=== PATIENT | male | born 1985 | race Caucasian/White ===

== ENCOUNTER → 2016-10-10 | Emergency (ER) | payer OTHER ==
[2016-10-10 22:11] VITALS: BP 116/69; PULSE 83; TEMP 97.9; BMI 26.6
== END | disposition left against medical advice (07) ==
LOC: FER 22:06
DX: Z53.21 Procedure and treatment not carried out due to patient leaving prior to being seen by health care provider (principal)
CPT/HCPCS: 99282-25

== ENCOUNTER 2017-08-30 23:56 | Observation (INO) | payer OTHER ==
[2017-08-30 20:49] LABS: HEMATOCRIT 25.8 % (32.4-45.2); HEMOGLOBIN 8.1 GM/dL (10.7-15.3); MCHC 31.4 g/dl (32.0-36.0); MEAN CELL VOLUME 79.7 fl (80-96); MEAN PLT VOLUME 9.7 fl (7.5-11.1); PLATELET COUNT 134 K/MM3 (134-434); RBC 3.24 M/mm3 (3.60-5.2); RDW 16.5 % (11.6-15.6)
[2017-08-30 21:02] LABS: INR 1.02 (0.82-1.09); PROTHROMBIN TIME (PATIENT) 11.5 SEC (9.98-11.88)
[2017-08-30 21:26] LABS: ALBUMIN 2.6 g/dl (3.4-5.0); ANION GAP 9 (8-16); BLOOD UREA NITROGEN 7 mg/dL (7-18); CALCIUM 8.1 mg/dL (8.5-10.1); CHLORIDE 108 mmol/L (98-107); CO2 24 mmol/L (21-32); CREATININE 0.5 mg/dL (0.55-1.02); GLUCOSE,RANDOM 74 mg/dL (74-106); POTASSIUM 3.9 mmol/L (3.5-5.1); SGOT/AST 10 U/L (15-37); SGPT/ALT 12 U/L (12-78); SODIUM 141 mmol/L (136-145)
[2017-08-30 21:27] LABS: ALK PHOS 140 U/L (45-117); BILIRUBIN,TOTAL 0.5 mg/dL (0.2-1.0); TOT PROT 6.1 g/dl (6.4-8.2)
[2017-08-30 21:44] LABS: PLATELET ESTIMATE DECREASED
--- NOTE | 2017-08-30 23:24 | HP ---
Past Medical History - Primary Care Physician PCP:: Chad Hernandez - Admission Chief Complaint: 32yo P1 with at EGA 34w 2d presents with c/o "fainting" at home yesterday x 1 while cooking and today x 1. History of Present Illness: Pt states that she fainted x 2 while cooking and sat herself on the sofa both times. The states that her witnessed both episodes. She reports no trauma, no falling, no loss of urine/stool, no tongue biting. She states feeling palpitations and fatigued. The pt was diagnosed with anemia and has a new appointment with [facility] for evaluation and tx. 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: No: Alzheimer's, CVA, Dementia, Migraine, Multiple Sclerosis, Peripheral Neuropathy, Parkinson's, Seizure, Syncope, TIA, Vertigo, Other Cardiovascular: No: AFIB, Aneurysm, Aortic Insufficiency, Aortic Stenosis, CAD, CHF, Deep Vein Thrombosis, HTN, Hyperlipdemia, ND, Mitral Insufficiency, Mitral Stenosis, Murmur, Pulmonary Hypertension, Other Pulmonary: No: Asthma, Bronchitis, Cancer, COPD, O2 Dependent, Pneumonia, Previously Intubated, Pulmonary Embolus, Pulmonary Fibrosis, Sleep Apnea, Other Gastrointestinal: No: Ascites, Cancer, Constipation, Crohn's Disease, Diverticulitis, Diverticulosis, Esophageal Varices, Gastritis, GERD, GI Bleed, Hemorrhoids, Hiatal Hernia, Inflamatory Bowel Disease, Irritable Bowel Disease, Pancreatitis, Peptic Ulcer Disease, Ulcerative Colitis, Other Hepatobiliary: No: Cirrhosis, Cholelithiasis, Cholecystitis, Choledocholithiasis , Hepatitis A, Hepatitis B, Hepatitis C, Other Renal/: No: Renal Failure, Renal Inusuff, BPH, Cancer, Hematuria, Hemodialysis , Neurogenic Bladder, Renal Calculi, UTI, Other Reproductive: No: Ectopic , Endometriosis, Fibroids, PID, Polycystic Ovary Syndrome, Postmenopausal, Other ...: 2 ...Para: 1 ...Term: 1 ...: 0 ...Spon : 0 ...Induced : 0 ...LMP: 01/02/17 ... Weeks Gestation by Dates: 34.2 ...EDC by Dates: 10/09/17 ...EDC by Sono: 10/09/17 Heme/Onc: Yes: Anemia Infectious Disease: No: AIDS, C-Diff, Herpes Zoster, HIV, MRSA, STD's, Tuberculosis, VREF, Other Psych: No: Addictions, Anxiety, Bipolar, Depression, Panic, Psychosis, Schizophrenia, Other Musculoskeletal: No: Bursitis, Chronic low back pain, Hemiparesis, Hemiplegia, Osteoarthritis, Paraplegia, Other Rheumatology: No: Fibromyalgia, Gout, Lupus, Rheumatoid Arthritis, Sarcoidosis, Vasculitis, Other ENT: No: Allergic Rhinitis, Sinusitis, Other Endocrine: No: Cortes's Disease, Tobin's Disease, Diabetes Insipidus, Diabetes Mellitus, Hyperparathyroidism, Hyperthyroidism, Hypothyroidism, Osteopenia, SIADH, Other Dermatology: No: Basal Cell, Cellulitis, Eczema, Melanoma, Psoriasis, Squamous Cell, Other - Past Surgical History Past Surgical History: Yes: None Hx Myomectomy: No Hx Transabdominal Cerclage: No - Smoking History Smoking history: Unknown if ever smoked Have you smoked in the past 12 months: No Aproximately how many cigarettes per day: 0 - Alcohol/Substance Use Hx Alcohol Use: No - Social History Usual Living Arrangement: Yes: With Spouse, With Child ADL: Independent History of Recent Travel: No Home Medications - Allergies Allergies/Adverse Reactions: Allergies Allergy/AdvReac Type Severity Reaction Status Date / Time No Known Allergies Allergy Verified 08/30/17 22:14 - Home Medications Home Medications: Ambulatory Orders Gummy Vitamins 6 tab.chew PO DAILY 08/30/17 Iron 10 ml PO BID 08/30/17 Family Disease History - Family Disease History Family History: Denies Review of Systems - Review of Systems Constitutional: reports: Weakness, Other (occasional abdominal cramps) Eyes: reports: No Symptoms HENT: reports: No Symptoms Neck: reports: No Symptoms Cardiovascular: reports: Palpitations Respiratory: reports: No Symptoms Gastrointestinal: reports: No Symptoms Genitourinary: reports: No Symptoms Breasts: reports: No Symptoms Reported Musculoskeletal: reports: No Symptoms Integumentary: reports: No Symptoms Neurological: reports: No Symptoms Endocrine: reports: No Symptoms Hematology/Lymphatic: reports: No Symptoms Psychiatric: reports: No Symptoms Pain Intensity: 1 Physical Exam - Maternity Vital Signs: Vital Signs Temperature 98.0 F 08/30/17 22:09 Pulse Rate 115 H 08/30/17 22:09 Respiratory Rate 20 08/30/17 22:09 Blood Pressure 119/66 08/30/17 22:09 O2 Sat by Pulse Oximetry (%) Constitutional: Yes: Well Nourished, No Distress, Calm Eyes: Yes: WNL, Conjunctiva Clear HENT: Yes: WNL, Atraumatic, Normocephalic Neck: Yes: WNL, Supple, Trachea Midline Cardiovascular: Yes: WNL, Regular Rate and Rhythm Lungs: Clear to auscultation, Normal air movement Breast(s): Yes: WNL - Abdominal Exam/OB Fundal Height: 34 Number of Fetuses: Single Presentation: Vertex Contractions: Yes Regularity: Irritability Intensity: Unaware Monitor Mode: External Heart Rate (range): 130 Heart Rate Location: Midline Category: I Accelerations: Uniform Decelerations: None - Vaginal Exam/OB Vaginal Bleediing: No Speculum Exam: No Dilatation (cm): 0 Effacement (%): 0 Amniotic Membrane Status: Intact - Physical Exam Musculoskeletal: Yes: WNL Extremities: Yes: WNL Edema: No Integumentary: Yes: WNL Deep Tendon Reflex Grade: Normal +2 ...Motor Strength: WNL Psychiatric: Yes: WNL, Alert, Oriented - Labs Lab Results: CBC, BMP 08/30/17 20:15 08/30/17 20:15 Hemorrhage Risk Assessment - Risk Factors Medium Risk Factors: Yes: Hematocrit < 30% & other High Risk Factors: Yes: None Risk Score: 1 Risk Level: Medium Risk Assessment/Plan 32 yo P1 with severe anemia and syncope x 2. Pt is not in labor. She was examined twice 3-4 hrs apart w/o cervical change. Fetus with Category I tracing and requires no intervention. At this point I plan to request ER syncope evaluation and possible PRBC transfusion.
[~2017-08-30 23:56] MED LIST: DEXTROSE 5%-LACTATED RINGERS 500 ML IV ONE
--- NOTE | 2017-08-31 00:55 | PDOC ---
History of Present Illness - General History Source: Patient Exam Limitations: No Limitations - History of Present Illness Initial Comments: 08/31/17 06:33 The patient is a 32 year old female who is 34 weeks with no other significant PMH who presents to the emergency department with syncopal episodes with palpitations yesterday and today. The patient reports cooking in the kitchen 2 days ago when she felt dizzy and went to sit in the living room, after which she had a witnessed syncopal episode on the couch. The patients notes it took about 5 minutes to awake the patient. She reports her second episode was yesterday, where she was having breakfast in the kitchen and passed out in front of her . The patient notes she experienced palpitations and some nausea during both episodes. She denies falling on the ground in either episode as she was sitting. The patients denies any seizure activity. Of note, the patient reports an episode of shortness of breath and palpitations approximately 3 months ago and was put on a Holter monitor which was normal. She presents today after being cleared by Dr. Hernandez at L&D for cardiac evaluation at the ED. The patient denies chest pain, shortness of breath, and headache. Denies fevers, chills, nausea, vomit, diarrhea, and constipation. Denies dysuria, frequency, urgency, and hematuria. Allergies: NKA Past surgical history: None reported. Social history: No reported cigarette, alcohol, or drug use. PCP: None reported. <Horacio Davison - Last Filed: 08/31/17 06:34> <Maddie Suero - Last Filed: 08/31/17 20:52> - General Chief Complaint: Syncope/Near Syncope Stated Complaint: fainting Time Seen by Provider: 08/31/17 00:49 Past History <Horacio Davison - Last Filed: 08/31/17 06:34> - Suicide/Smoking/Psychosocial Hx Smoking History: Never smoked Have you smoked in the past 12 months: No Number of Cigarettes Smoked Daily: 0 Hx Alcohol Use: No Drug/Substance Use Hx: No Substance Use Type: None <Maddie Suero - Last Filed: 08/31/17 20:52> - Past Medical History Allergies/Adverse Reactions: Allergies Allergy/AdvReac Type Severity Reaction Status Date / Time No Known Allergies Allergy Verified 08/31/17 00:02 Home Medications: Ambulatory Orders Gummy Vitamins 6 tab.chew PO DAILY 08/30/17 Iron 10 ml PO BID 08/30/17 Review of Systems - Review of Systems Able to Perform ROS?: Yes Comments:: 08/31/17 06:33 GENERAL/CONSTITUTIONAL: No fever or chills. No weakness. HEAD, EYES, EARS, NOSE AND THROAT: No change in vision. No ear pain or discharge. No sore throat. CARDIOVASCULAR: (+) Palpitations. No chest pain or shortness of breath. RESPIRATORY: No cough, wheezing, or hemoptysis. GASTROINTESTINAL: (+) Nausea. No vomiting, diarrhea or constipation. GENITOURINARY: No dysuria, frequency, or change in urination. MUSCULOSKELETAL: No joint or muscle swelling or pain. No neck or back pain. SKIN: No rash NEUROLOGIC: (+) 2 syncopal episodes. (+) Dizziness. No headache, vertigo, loss of consciousness, or change in strength. ENDOCRINE: No increased thirst. No abnormal weight change. HEMATOLOGIC/LYMPHATIC: No anemia, easy bleeding, or history of blood clots. ALLERGIC/IMMUNOLOGIC: No hives or skin allergy. <Horacio Davison - Last Filed: 08/31/17 06:34> *Physical Exam - Vital Signs Last Vital Signs Temp Pulse Resp BP Pulse Ox 98 F 108 H 18 118/66 98 08/31/17 00:05 08/31/17 00:05 08/31/17 00:05 08/31/17 00:05 08/31/17 00:05 - Physical Exam Comments: 08/31/17 06:34 GENERAL: Awake, alert, and fully oriented, in no acute distress HEAD: No signs of trauma EYES: PERRLA, EOMI, sclera anicteric, conjunctiva clear ENT: Auricles normal inspection, hearing grossly normal, nares patent, oropharynx clear without exudates. Moist mucosa NECK: Normal ROM, supple, no lymphadenopathy, JVD, or masses LUNGS: Breath sounds equal, clear to auscultation bilaterally. No wheezes, and no crackles HEART: Regular rate and rhythm, normal S1 and S2, no murmurs, rubs or gallops ABDOMEN: Enlarged belly. Soft, nontender, normoactive bowel sounds. No guarding , no rebound. No masses EXTREMITIES: Normal range of motion, no edema. No clubbing or cyanosis. No cords, erythema, or tenderness NEUROLOGICAL: Cranial nerves II through XII grossly intact. Normal speech, normal gait SKIN: Warm, Dry, normal turgor, no rashes or lesions noted. <DavisonHoracio - Last Filed: 08/31/17 06:34> - Vital Signs Last Vital Signs Temp Pulse Resp BP Pulse Ox 98 F 108 H 18 118/66 98 08/31/17 00:05 08/31/17 00:05 08/31/17 00:05 08/31/17 00:05 08/31/17 00:05 <Maddie Suero - Last Filed: 08/31/17 20:52> Heart Score/ECG Review #1 08/31/17 02:10 Vent rate 94 bpm Normal sinus rhythm <DavisonHoracio - Last Filed: 08/31/17 06:34> ED Treatment Course - LABORATORY CBC & Chemistry Diagram: 08/30/17 20:15 08/30/17 20:15 - ADDITIONAL ORDERS Additional order review: Laboratory Results 08/30/17 08/30/17 08/30/17 20:15 20:15 20:15 PT with INR 11.50 INR 1.02 PTT (Actin FS) 21.0 L Sodium 141 Potassium 3.9 Chloride 108 H Carbon Dioxide 24 Anion Gap 9 BUN 7 Creatinine 0.5 L Creat Clearance w eGFR > 60 Random Glucose 74 Calcium 8.1 L Total Bilirubin 0.5 AST 10 L ALT 12 Alkaline Phosphatase 140 H Creatine Kinase 34 Troponin I < 0.02 Total Protein 6.1 L Albumin 2.6 L Blood Type B POSITIVE Antibody Screen Negative 08/30/17 20:15 RBC 3.24 L MCV 79.7 L MCHC 31.4 L RDW 16.5 H MPV 9.7 Neutrophils % 66.0 Lymphocytes % 5.0 L Monocytes % 15.0 H Eosinophils % 11.0 H Basophils % Hydroelectric Production Manager - Medications Given in the ED: ED Medications Discontinued Medications Generic Name Dose Route Start Last Admin Trade Name Freq PRN Reason Stop Dose Admin Dextrose/Lactated Ringer's 500 mls @ 500 mls/hr 08/30/17 20:00 08/30/17 20:30 D5-Lr - IV 08/30/17 20:59 500 mls/hr ONCE ONE Administration Dextrose/Lactated Ringer's 500 mls @ 250 mls/hr 08/30/17 21:00 08/30/17 21:30 D5-Lr - IV 08/30/17 22:59 250 mls/hr ONCE ONE Administration <Horacio Davison - Last Filed: 08/31/17 06:34> - LABORATORY CBC & Chemistry Diagram: 08/31/17 08:20 08/30/17 20:15 - ADDITIONAL ORDERS Additional order review: Laboratory Results 08/30/17 08/30/17 08/30/17 20:15 20:15 20:15 PT with INR 11.50 INR 1.02 PTT (Actin FS) 21.0 L Sodium 141 Potassium 3.9 Chloride 108 H Carbon Dioxide 24 Anion Gap 9 BUN 7 Creatinine 0.5 L Creat Clearance w eGFR > 60 Random Glucose 74 Calcium 8.1 L Total Bilirubin 0.5 AST 10 L ALT 12 Alkaline Phosphatase 140 H Total Protein 6.1 L Albumin 2.6 L Blood Type B POSITIVE Antibody Screen Negative 08/30/17 20:15 RBC 3.24 L MCV 79.7 L MCHC 31.4 L RDW 16.5 H MPV 9.7 Neutrophils % 66.0 Lymphocytes % 5.0 L Monocytes % 15.0 H Eosinophils % 11.0 H Basophils % Hydroelectric Production Manager - Medications Given in the ED: ED Medications Discontinued Medications Generic Name Dose Route Start Last Admin Trade Name Davidq PRN Reason Stop Dose Admin Dextrose/Lactated Ringer's 500 mls @ 500 mls/hr 08/30/17 20:00 08/30/17 20:30 D5-Lr - IV 08/30/17 20:59 500 mls/hr ONCE ONE Administration Dextrose/Lactated Ringer's 500 mls @ 250 mls/hr 08/30/17 21:00 08/30/17 21:30 D5-Lr - IV 08/30/17 22:59 250 mls/hr ONCE ONE Administration <Maddie Suero - Last Filed: 08/31/17 20:52> Medical Decision Making - Medical Decision Making 08/31/17 01:48 Pt comes with syncope yesterday and today. Both times she was in the kitchen. On she was cooking when she suddenly felt lightheaded. She sat on her couch at home and she "passed out" witnessed by her . On Saturday she was eating breakfast, felt dizzy and sat on the couch and passed out again. I discussed with the patient the fact that this could be indicative of PE/DVT. Pt understands that CTA is too much radiation and that VQ scan may be done while she is admittted. She is 34 weeks and she comes to the ER for eval. Pt went directly to L+D as she has 34 week gestation. There she was cleared by the clerical adviser. He later sent her to the ER for cardiac eval. Pt will have EKG and cardiac enzymes. Blood tests that were done on L+D reveal low Hb/HCT. 08/31/17 05:15 Pt states that she has had SOB x 3 months, and that her DIRECT CHILL CASTER sent her to cardiology @ [facility]. She has had a holter monitor in the past 3 months and it has been normal. Pt says that she is comfortable at this time. No palpitations. 08/31/17 20:50 Pt was admitted to the hospitalist and the day team is going to admit her to a tele bed, as we are having difficulty transitioning her chart from OB/L+D to ER to admission; Pt is admitted however. <Maddie Suero - Last Filed: 08/31/17 20:52> *DC/Admit/Observation/Transfer - Attestations Scribe Attestion: 08/31/17 04:03 Documentation prepared by Horacio Davison, acting as medical administrative technician for Maddie Suero MD. <Horacio Davison - Last Filed: 08/31/17 06:34> - Discharge Dispostion Admit: Yes <Maddie Suero - Last Filed: 08/31/17 20:52> Diagnosis at time of Disposition: Syncope Qualifiers: Syncope type: unspecified Qualified Code(s): R55 - Syncope and collapse - Discharge Dispostion Condition at time of disposition: Guarded
--- NOTE | 2017-08-31 05:31 | PN ---
Teaching Attending Note Name of Resident: Mavis Sky ATTENDING PHYSICIAN STATEMENT I saw and evaluated the patient. Chart, data, and imaging reviewed. I reviewed the resident's note and discussed the case with the resident. I agree with the resident's findings and plan as documented. SUBJECTIVE: 32yo woman at 34 weeks gestation underwent 2 syncope episodes- one 08/29 and one 08/30. The first episode - patient was cooking and felt palpitations, lightheaded and walked over to couch and lost consciousness of several seconds. The second episode-pt lost consciousness on her couch and lasted for a few seconds. There was no trauma to head. There was no tongue biting. Patient follows regularly with OBGYN for routine care. She denied using any illicit drugs or etoh. OBJECTIVE: Last Vital Signs Temp Pulse Resp BP Pulse Ox 98 F 108 H 18 118/66 98 08/31/17 00:05 08/31/17 00:05 08/31/17 00:05 08/31/17 00:05 08/31/17 00:05 general- pleasant, aaox3, nad heent- atraumatic, no sinus tenderness, no tongue bites neck -supple cv-s1+s+rrr, no murmurs appreciated chest - cta b/l abdomen-gravid uterus skin - no rashes appreciated Abnormal Lab Results 08/30/17 08/30/17 08/30/17 20:15 20:15 20:15 WBC 16.0 H RBC 3.24 L Hgb 8.1 L Hct 25.8 L MCV 79.7 L MCH 25.0 L MCHC 31.4 L RDW 16.5 H Lymphocytes % 5.0 L Monocytes % 15.0 H Monocytes % (Manual) 11 H Eosinophils % 11.0 H Metamyelocytes 3 H PTT (Actin FS) 21.0 L Chloride 108 H Creatinine 0.5 L Calcium 8.1 L AST 10 L Alkaline Phosphatase 140 H Total Protein 6.1 L Albumin 2.6 L EKG - normal sinus rhythm ASSESSMENT AND PLAN: #Syncope episodes x2 in a woman at 34 wks gestation with normal EKG and evidence of seizure activity. Most likely 2/2 orthostatic or vasovagal mechanism. -admit to observation telemery -check for orthostatic hypotension -transthoracic echo to r/o aortic stenosis -carotid duplex ultrasound b/l -IV fluid hydration -bed rest # at 34 weeks gestation -OBGYN consult for management -avoid teratogenic drugs -Anemia- may be partially due to dilution -iron studies, ferritin, b12 -repeat CBC- if persistently severe anemia, transfuse PRBC #DVT ppx- heparin sc
--- NOTE | 2017-08-31 05:50 | HP ---
CHIEF COMPLAINT: syncope PCP: HISTORY OF PRESENT ILLNESS: The pt is a 42 year old female 34 weeks with a PMH of anemia, GERD who presented to the hospital complaining of two episodes of losing consciousness. First one 2 days ago while cooking and second one yesterday 08/30/17 after eating breakfast. In both situations she started feeling palpitations and dizziness before and after the episodes. She was able to reach her couch, sit down and fell "to the side". It was witnessed by her . The pt denies biting her tongue, urination, seizure, hitting her head. She had palpitations before her . Cardiac workup was done by her sectionizer (doesn't remember the name) in [facility] that was normal. Around the same time two days ago , she started having abdominal cramping. The pt says that her is uncomplicated. She takes oral iron and multivitamins. When I saw the pt she denied palpitations, chest pain, dizziness, contractions, cramping, vaginal bleeding. She denies fever, chills, nausea, vomiting. 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 Family History: father: heart disease, stents mother: osteoarthritis, DM Allergies No Known Allergies Allergy (Verified 08/31/17 00:02) HOME MEDICATIONS: Home Medications Medication Instructions Recorded Gummy Vitamins 6 tab.chew PO DAILY 08/30/17 Iron 10 ml PO BID 08/30/17 REVIEW OF SYSTEMS CONSTITUTIONAL: Absent: fever, chills, diaphoresis, generalized weakness, malaise, loss of appetite, weight change HEENT: Absent: rhinorrhea, nasal congestion, throat pain, throat swelling, difficulty swallowing, mouth swelling, CARDIOVASCULAR: syncope, palpitations Absent: chest pain, irregular heart rate, lightheadedness, peripheral edema RESPIRATORY: Absent: cough, shortness of breath, dyspnea with exertion, orthopnea, wheezing, GASTROINTESTINAL: Absent: abdominal pain, abdominal distension, nausea, vomiting, diarrhea, constipation, GENITOURINARY: Absent: dysuria, frequency, urgency, hesitancy, hematuria, flank pain, genital pain MUSCULOSKELETAL: Absent: myalgia, arthralgia, joint swelling, back pain, neck pain SKIN: Absent: rash, itching, pallor ENDOCRINE: Absent: unexplained weight gain, unexplained weight loss, heat intolerance, cold intolerance NEUROLOGIC: Absent: headache, focal weakness or paresthesias, dizziness, unsteady gait, seizure, PSYCHIATRIC: Absent: anxiety, depression, PHYSICAL EXAMINATION Vital Signs - 24 hr 08/30/17 08/31/17 22:09 00:05 Temperature 98.0 F 98 F Pulse Rate 108 H Pulse Rate [ 115 H Pulse Oximetry] Respiratory 20 18 Rate Blood Pressure 118/66 Blood Pressure 119/66 [Right Upper Arm] O2 Sat by Pulse 98 Oximetry (%) GENERAL: Awake, alert, and fully oriented, in no acute distress. HEAD: Normal with no signs of trauma. EYES: Pupils equal, round and reactive to light, extraocular movements intact, sclera anicteric, conjunctiva clear. No lid lag. EARS, NOSE, THROAT: Ears normal, nares patent, oropharynx clear without exudates. Moist mucous membranes. NECK: Normal range of motion, supple without lymphadenopathy, JVD, or masses. LUNGS: Breath sounds equal, clear to auscultation bilaterally. No wheezes, and no crackles. No accessory muscle use. HEART: Regular rate and rhythm, normal S1 and S2 without murmur, rub or gallop. ABDOMEN: Gravid, soft, nontender, distended, normoactive bowel sounds, no guarding, no rebound, no masses. MUSCULOSKELETAL: Normal range of motion at all joints. No bony deformities or tenderness. UPPER EXTREMITIES: 2+ pulses, warm, no clubbing. No peripheral edema. LOWER EXTREMITIES: 2+ pulses, warm. No calf tenderness. No peripheral edema. NEUROLOGICAL: Normal speech, 5/5 motor, sensation intact. Normal gait. PSYCHIATRIC: Cooperative. Good eye contact. Appropriate mood and affect. SKIN: Warm, dry, normal turgor, no rashes or lesions noted. Laboratory Results - last 24 hr 08/30/17 08/30/17 08/30/17 20:15 20:15 20:15 WBC 16.0 H RBC 3.24 L Hgb 8.1 L Hct 25.8 L MCV 79.7 L MCH 25.0 L MCHC 31.4 L RDW 16.5 H Plt Count 134 MPV 9.7 Total Counted 100 Neutrophils % 66.0 Neutrophils % (Manual) 66.0 Band Neutrophils % 5.0 Lymphocytes % 5.0 L Lymphocytes % (Manual) 15.0 Monocytes % 15.0 H Monocytes % (Manual) 11 H Eosinophils % 11.0 H Basophils % Photoengraving Retoucher Metamyelocytes 3 H Hypochromia 1+ Platelet Estimate Decreased Platelet Comment No clumping noted Polychromasia 1+ PT with INR 11.50 INR 1.02 PTT (Actin FS) 21.0 L Sodium 141 Potassium 3.9 Chloride 108 H Carbon Dioxide 24 Anion Gap 9 BUN 7 Creatinine 0.5 L Creat Clearance w eGFR > 60 Random Glucose 74 Calcium 8.1 L Total Bilirubin 0.5 AST 10 L ALT 12 Alkaline Phosphatase 140 H Creatine Kinase 34 Troponin I < 0.02 Total Protein 6.1 L Albumin 2.6 L Blood Type Antibody Screen 08/30/17 20:15 WBC RBC Hgb Hct MCV MCH MCHC RDW Plt Count MPV Total Counted Neutrophils % Neutrophils % (Manual) Band Neutrophils % Lymphocytes % Lymphocytes % (Manual) Monocytes % Monocytes % (Manual) Eosinophils % Basophils % Metamyelocytes Hypochromia Platelet Estimate Platelet Comment Polychromasia PT with INR INR PTT (Actin FS) Sodium Potassium Chloride Carbon Dioxide Anion Gap BUN Creatinine Creat Clearance w eGFR Random Glucose Calcium Total Bilirubin AST ALT Alkaline Phosphatase Creatine Kinase Troponin I Total Protein Albumin Blood Type B POSITIVE Antibody Screen Negative ASSESSMENT/PLAN: The pt is a 42 year old female 34 weeks with a PMH of anemia, GERD who presented to the hospital complaining of two episodes of syncope. She is placed on observation in telemetry. Syncope: -possibly due to dehydration, less likely due to heart disease or seizure -orthostatic vitals, -bed rest -ECHO, carotids ordered -Cardiology consulted -cardiac monitoring -EKG reviewed-nl -TSH ordered : -continue multivitamins -cont Iron -f/u OBGYN recommendations Anemia: -due to -will f/u CBC -cont Iron -will transfuse if Hgb is dropping -iron studies ordered DVT PPX: SCDs -pt is ambulating GI PPX; cont Nexium Disposition: tele obs Problem List - Problem (1) Anemia Code(s): D64.9 - ANEMIA, UNSPECIFIED (2) Code(s): Z34.90 - ENCNTR FOR SUPRVSN OF NORMAL , UNSP, UNSP TRIMESTER (3) Carpal tunnel syndrome Code(s): G56.00 - CARPAL TUNNEL SYNDROME, UNSPECIFIED UPPER LIMB (4) Syncope Code(s): R55 - SYNCOPE AND COLLAPSE Visit type - Emergency Visit Emergency Visit: Yes Care time: The patient presented to the Emergency Department on the above date and was hospitalized for further evaluation of their emergent condition. - New Patient This patient is new to me today: Yes Date on this admission: 08/31/17 - Critical Care Critical Care patient: No
--- NOTE | 2017-08-31 08:07 | PDOC ---
*Physical Exam - Vital Signs Last Vital Signs Temp Pulse Resp BP Pulse Ox 98.0 F 100 H 16 120/71 100 08/31/17 06:35 08/31/17 06:35 08/31/17 06:35 08/31/17 06:35 08/31/17 06:35 ED Treatment Course - LABORATORY CBC & Chemistry Diagram: 08/30/17 20:15 08/30/17 20:15 - ADDITIONAL ORDERS Additional order review: Laboratory Results 08/30/17 08/30/17 08/30/17 20:15 20:15 20:15 PT with INR 11.50 INR 1.02 PTT (Actin FS) 21.0 L Sodium 141 Potassium 3.9 Chloride 108 H Carbon Dioxide 24 Anion Gap 9 BUN 7 Creatinine 0.5 L Creat Clearance w eGFR > 60 Random Glucose 74 Calcium 8.1 L Total Bilirubin 0.5 AST 10 L ALT 12 Alkaline Phosphatase 140 H Creatine Kinase 34 Troponin I < 0.02 Total Protein 6.1 L Albumin 2.6 L Blood Type B POSITIVE Antibody Screen Negative 08/30/17 20:15 RBC 3.24 L MCV 79.7 L MCHC 31.4 L RDW 16.5 H MPV 9.7 Neutrophils % 66.0 Lymphocytes % 5.0 L Monocytes % 15.0 H Eosinophils % 11.0 H 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 Muñoz had informed me that with patients that are in 3rd trimester, the patient should be admitted under environmental science instructor. They will remain on as consultants. Case discussed with Dr. Hernandez. He accepts patient to his service. *DC/Admit/Observation/Transfer Diagnosis at time of Disposition: Syncope Qualifiers: Syncope type: unspecified Qualified Code(s): R55 - Syncope and collapse - Discharge Dispostion Admit: Yes - Referrals - Patient Instructions - Post Discharge Activity
[2017-08-31 09:05] LABS: HEMATOCRIT 24.7 % (32.4-45.2); HEMOGLOBIN 7.7 GM/dL (10.7-15.3); MCH 24.9 pg (25.7-33.7); MCHC 31.2 g/dl (32.0-36.0); MEAN CELL VOLUME 79.6 fl (80-96); MEAN PLT VOLUME 9.3 fl (7.5-11.1); PLATELET COUNT 117 K/MM3 (134-434); RDW 16.7 % (11.6-15.6); WHITE BLOOD COUNT 16.7 K/mm3 (4.0-10.0)
--- NOTE | 2017-08-31 09:47 | CON.CARD ---
Consult Consult Specialty:: Cardiology Referred by:: Hospitalist Reason for Consultation:: Syncope and palpitations - History of Present Illness Chief Complaint: Syncope History of Present Illness: 32 year old woman with no significant pmh, currently at 34 weeks gestation of her 2nd , admitted with 2 episodes of syncope and episodes of palpitations. Pt seen and examined in the ER in [facility]. Pt states that she has been feeling palpitations on and off for several weeks. She was evaluated by a commissioned security officer at [facility] and had a holter monitor that she states was normal. She now comes in for 2 episodes of syncope. The first episode on 08/29 occurred while standing in the kitchen, she felt palpitations, lightheadedness, and then sat down and lost consciousness. She states her witnessed it and she states she was unconscious for about a minute, when she woke up she still felt lightheaded, she ate and drank and layed down then felt better. On 08/30 a second episode of syncope occurred while sitting in a chair with similar preceding symptoms and followed by lightheadedness after waking up. She denies any chest pain. She has had mild dyspnea throughout her . No pnd, orthopnea, or LE edema. - History Source History Provided By: Patient, Medical Record Limitations to Obtaining History: No Limitations - Past Medical History ...: Yes - Past Surgical History Past Surgical History: Yes: None - Alcohol/Substance Use Hx Alcohol Use: No - Smoking History Smoking history: Never smoked Have you smoked in the past 12 months: No Aproximately how many cigarettes per day: 0 - Social History ADL: Independent History of Recent Travel: No Home Medications - Allergies Allergies/Adverse Reactions: Allergies Allergy/AdvReac Type Severity Reaction Status Date / Time No Known Allergies Allergy Verified 08/31/17 00:02 - Home Medications Home Medications: Ambulatory Orders Duy Vitamins 6 tab.chew PO DAILY 08/30/17 Iron 10 ml PO BID 08/30/17 Family Disease History - Family Disease History Family History: Denies Review of Systems - Review of Systems Constitutional: denies: No Symptoms, Chills, Diaphoresis, Fever, Lethargy, Loss of Appetite, Malaise, Night Sweats, Unintentional Wgt. Loss, Weakness, Other Eyes: denies: No Symptoms, Blind Spots, Blurred Vision, Double Vision, Eye Pain , Floaters, Photophobia, Recent Change in Vision, Other HENT: denies: No Symptoms, Difficult Swallowing, Ear Discharge, Ear Pain, Epistaxis, Gingival Bleeding, Hearing Loss, Mouth Swelling, Nasal Congestion, Ocular Prosthesis, Throat Pain, Toothache, Ringing in Ears, Other Neck: denies: No Symptoms, Decreased ROM, Lumps, Pain on Movement, Stiffness, Swollen Glands, Tenderness, Other Cardiovascular: reports: Palpitations, Shortness of Breath. denies: No Symptoms , Chest Pain, Edema, Other Respiratory: reports: SOB, SOB on Exertion. denies: No Symptoms, Cough, Exercise Intolerance, Hemoptysis, Orthopnea, PND, Snoring, Wheezing, Other Gastrointestinal: denies: No Symptoms, Abdominal Pain, Bloating, Constipation, Diarrhea, Dysphagia, Indigestion, Melena, Nausea, Rectal Bleeding, Vomiting, Vomiting Blood, Other Genitourinary: denies: No Symptoms, Burning, Discharge, Dysuria, Flank Pain, Frequency, Hematuria, Incontinence, Lesions, Menses, Pain, Testicular Mass, Testicular Pain, Testicular Swelling, Urgency, Vaginal Bleeding, Other Breasts: denies: No Symptoms Reported, See HPI, Breast Implants, Discharge from Nipple, Lumps, Pain, Skin Changes, Other Musculoskeletal: denies: No Symptoms, Back Pain, Crepitus, Decreased ROM, Extremity Pain, Joint Pain, Joint Swelling, Muscle Pain, Muscle Cramps, Muscle Weakness, Other Integumentary: denies: No Symptoms, Blister, Bruising, Change in Color, Eczema, Erythema, Incision, Lesions, Lump, Pallor, Pruritis, Rash, Wound, Other Neurological: reports: Dizziness, Syncope. denies: No Symptoms, Change in LOC, Change in Speech, Confusion, Headache, Incoordination, Numbness, Parasthesia, Pre-Existing Deficit, Seizure, Tremors, Unsteady Gait, Weakness, Other Endocrine: denies: No Symptoms, Excessive Sweating, Flushing, Increased Hunger, Increased Thirst, Intolerance to Cold, Intolerance to Heat, Unexplained Weight Gain, Unexplained Weight Loss, Other Hematology/Lymphatic: denies: No Symptoms, Easily Bruised, Excessive Bleeding, Swollen Glands, Other Psychiatric: denies: No Symptoms, Altered Sleep Pattern, Anxiety, Depression, Hallucinations, Panic, Paranoia, Suicidal, Other Vital Signs: Vital Signs Temperature 98.0 F 08/31/17 06:35 Pulse Rate 106 H 08/31/17 09:22 Respiratory Rate 16 08/31/17 09:22 Blood Pressure 110/68 08/31/17 09:22 O2 Sat by Pulse Oximetry (%) 100 08/31/17 09:22 Constitutional: Yes: Well Nourished, No Distress, Calm Eyes: Yes: WNL, Conjunctiva Clear, EOM Intact, PERRL HENT: Yes: WNL, Atraumatic, Normocephalic Neck: Yes: WNL, Supple, Trachea Midline Respiratory: Yes: WNL, Regular, CTA Bilaterally. No: Rales, Rhonchi, Wheezes Gastrointestinal: Yes: Normal Bowel Sounds, Other (gravid uterus) Cardiovascular: Yes: WNL, Regular Rate and Rhythm. No: Bradycardia, Tachycardia , Pulse Irregular, Gallop, Rub, Varicosities JVD: No Carotid Bruit: No PMI: Non-Displaced Heart Sounds: Yes: S1, S2. No: Split S2, S3, S4, Clicks, Gallop, Rub, Bruit Murmur: No: Systolic Murmur, Diastolic Murmur Musculoskeletal: Yes: WNL Extremities: Yes: WNL Edema: No Peripheral Pulses WNL: Yes Peripheral Pulses: 2+ Left Doralis Pedis, 2+ Right Dorsalis Pedis Integumentary: Yes: WNL Neurological: Yes: WNL, Alert, Oriented, Cran Nerves II-XII Intact Psychiatric: Yes: Alert, Oriented - Other Data Labs, Other Data: CBC, BMP 08/31/17 08:20 08/30/17 20:15 INR, PTT INR 1.02 (0.82-1.09) 08/30/17 20:15 Troponin, BNP 08/30/17 20:15 Troponin I < 0.02 Troponin, BNP 08/30/17 20:15 Troponin I < 0.02 EKG-NSR 99bpm, poor R progression, nonspecific T inversion Imaging - Results Chest X-ray: Report Reviewed, Image Reviewed EKG: Report Reviewed, Image Reviewed Other: Report Reviewed, Image Reviewed (tele-nsr, no arrhtyhmias recorded thus far) Assessment/Plan 32 year old woman with no significant pmh, currently at 34 weeks gestation of her 2nd , admitted with 2 episodes of syncope and episodes of palpitations. Pt seen and examined in the ER [place]. Pt states that she has been feeling palpitations on and off for several weeks. She was evaluated by a commissioned security officer at [facility] and had a holter monitor that she states was normal. She now comes in for 2 episodes of syncope. The first episode on 08/29 occurred while standing in the kitchen, she felt palpitations, lightheadedness, and then sat down and lost consciousness. She states her witnessed it and she states she was unconscious for about a minute, when she woke up she still felt lightheaded, she ate and drank and layed down then felt better. On 08/30 a second episode of syncope occurred while sitting in a chair with similar preceding symptoms and followed by lightheadedness after waking up. She denies any chest pain. She has had mild dyspnea throughout her . No pnd, orthopnea, or LE edema. Syncope-uncertain etiology -she does report palpitations on and off recently and correlating with the event -recent Holter monitor with a commissioned security officer at [facility] reported as normal by patient -no events thus far on telemetry -pt reports mild sob with her , none currently, no chest pain, SaO2 normal, unlikely pulmonary embolism -cont to monitor telemetry for arrhythmias -check orthostatic BP -pt reports h/o anemia, confirm baseline and prior work up -f/up TFTs -maintain adequate hydration -if remains inpatient until saturday check echo at that time otherwise as outpatient
[2017-08-31] MEDS ORDERED: DEXTROSE 5%-LACTATED RINGERS 1,000 ML IV SCH (10:45)
--- NOTE | 2017-08-31 12:12 | EKG ---
Test Reason : Blood Pressure : / mmHG Vent. Rate : 094 BPM Atrial Rate : 094 BPM P-R Int : 168 ms QRS Dur : 088 ms QT Int : 350 ms P-R-T Axes : 049 066 016 degrees QTc Int : 437 ms NORMAL SINUS RHYTHM CANNOT RULE OUT ANTERIOR INFARCT , AGE UNDETERMINED ABNORMAL ECG NO PREVIOUS ECGS AVAILABLE Confirmed by VINCE SHI MD ([id number]) on 08/31/2017 12:12:12 PM Referred By: Confirmed By:VINCE HSI MD
--- NOTE | 2017-08-31 22:12 | HOSP ---
Subjective - Review of Symptoms Events since last encounter: Patient is refusing to have blood transfusions. Continues to have tachycardia no shortness of breath, feels comfortable but had 2 episodes of syncope at home. monitoring per shift as per [facility]. Vital Signs Temperature 98.4 F 08/31/17 21:12 Pulse Rate 102 H 08/31/17 21:12 Respiratory Rate 20 08/31/17 21:12 Blood Pressure 108/65 08/31/17 21:12 O2 Sat by Pulse Oximetry (%) 96 08/31/17 21:00 PE: comfortably lying in bed HEENT : MMM, no exudate or erythema CHEST: CTA BL abdomen: 34week lady Neuro: AAOx3 CBCD WBC 16.7 K/mm3 (4.0-10.0) H 08/31/17 08:20 RBC 3.10 M/mm3 (3.60-5.2) L 08/31/17 08:20 Hgb 7.7 GM/dL (10.7-15.3) L 08/31/17 08:20 Hct 24.7 % (32.4-45.2) L 08/31/17 08:20 MCV 79.6 fl (80-96) L 08/31/17 08:20 MCHC 31.2 g/dl (32.0-36.0) L 08/31/17 08:20 RDW 16.7 % (11.6-15.6) H 08/31/17 08:20 Plt Count 117 K/MM3 (134-434) L 08/31/17 08:20 MPV 9.3 fl (7.5-11.1) 08/31/17 08:20 CMP Sodium 141 mmol/L (136-145) 08/30/17 20:15 Potassium 3.9 mmol/L (3.5-5.1) 08/30/17 20:15 Chloride 108 mmol/L (98-107) H 08/30/17 20:15 Carbon Dioxide 24 mmol/L (21-32) 08/30/17 20:15 Anion Gap 9 (8-16) 08/30/17 20:15 BUN 7 mg/dL (7-18) 08/30/17 20:15 Creatinine 0.5 mg/dL (0.55-1.02) L 08/30/17 20:15 Creat Clearance w eGFR > 60 (>60) 08/30/17 20:15 Random Glucose 74 mg/dL (74-106) 08/30/17 20:15 Calcium 8.1 mg/dL (8.5-10.1) L 08/30/17 20:15 Total Bilirubin 0.5 mg/dL (0.2-1.0) 08/30/17 20:15 AST 10 U/L (15-37) L 08/30/17 20:15 ALT 12 U/L (12-78) 08/30/17 20:15 Alkaline Phosphatase 140 U/L (45-117) H 08/30/17 20:15 Total Protein 6.1 g/dl (6.4-8.2) L 08/30/17 20:15 Albumin 2.6 g/dl (3.4-5.0) L 08/30/17 20:15 CARDIAC ENZYMES Creatine Kinase 39 IU/L (26-192) 08/31/17 08:20 Troponin I < 0.02 ng/ml (0.00-0.05) 08/31/17 08:20 Current Medications Generic Name Dose Route Start Last Admin Trade Name Freq PRN Reason Stop Dose Admin Dextrose/Lactated Ringer's 1,000 mls @ 75 mls/hr 08/31/17 10:45 08/31/17 11: 19 D5-Lr - IV 75 mls/hr ASDIR ANIA Administration Non-Formulary Medication 6 tab.chew 09/01/17 10:00 Gummy Vitamins PO DAILY [facility] Home Medications Medication Instructions Recorded Gummy Vitamins 6 tab.chew PO DAILY 08/30/17 Iron 10 ml PO BID 08/30/17 # Microcytic anemia refusing transfusion at this time, iron supplements 3x per day with food added colace. WILL GET Hematology to see her for further care since she continues to be tachycardic without other symptoms # 34 weeks. Physical Examination Vital Signs: Vital Signs Temperature 98.4 F 08/31/17 21:12 Pulse Rate 102 H 08/31/17 21:12 Respiratory Rate 20 08/31/17 21:12 Blood Pressure 108/65 08/31/17 21:12 O2 Sat by Pulse Oximetry (%) 96 08/31/17 21:00 Labs: CBC, BMP 08/31/17 08:20 08/30/17 20:15
[2017-09-01 06:36] LABS: SERUM IRON SATURATION 3 % (15-55); TOTAL IRON BINDING CAPACITY 606 ug/dL (250-450); UIBC 589 ug/dL (131-425)
--- NOTE | 2017-09-01 07:48 | PN ---
Physical Exam: SUBJECTIVE: Patient seen and examined at bedside. No acute events over night. denies any fever, chills, N/V/D/C. Refused blood transfusion ,asking to try iron supplement.will consult hematology for iron infusion OBJECTIVE: Vital Signs Period Temp Pulse Resp BP Sys/[place] Pulse Ox Last 24 Hr 97.7 F-98.6 F 99-115 16-21 101-129/51-71 96-100 GENERAL: The patient is awake, alert, and fully oriented, in no acute distress. HEAD: Normal with no signs of trauma. EYES: sclera anicteric, conjunctiva pale. ENT: moist mucous membranes. NECK: supple. LUNGS: Breath sounds equal, clear to auscultation bilaterally, no wheezes, no crackles, no accessory muscle use. HEART: Sinus tachy, S1, S2 without murmur, rub or gallop. ABDOMEN: gravid uterus 34 weeks, nontender, distended, normoactive bowel sounds. rebound, no hepatosplenomegaly, no masses. EXTREMITIES: 2+ pulses, warm, well-perfused, no edema. NEUROLOGICAL: No focal deficit,Normal speech, gait not observed. PSYCH: Normal mood, normal affect. SKIN: Warm, dry. Laboratory Results - last 24 hr 08/30/17 08/31/17 08/31/17 20:15 08:20 08:20 WBC 16.7 H RBC 3.10 L Hgb 7.7 L Hct 24.7 L MCV 79.6 L MCH 24.9 L MCHC 31.2 L RDW 16.7 H Plt Count 117 L MPV 9.3 Iron TIBC Iron Saturation Ferritin Creatine Kinase 39 Troponin I < 0.02 TSH 2.88 Crossmatch See Detail 08/31/17 08/31/17 08/31/17 08:20 08:20 11:30 WBC RBC Hgb Hct MCV MCH MCHC RDW Plt Count MPV Iron 17 L TIBC 606 H Iron Saturation 3 L Ferritin 4.452 L Creatine Kinase Cancelled Troponin I Cancelled TSH Crossmatch Active Medications Generic Name Dose Route Start Last Admin Trade Name Freq PRN Reason Stop Dose Admin Dextrose/Lactated Ringer's 1,000 mls @ 75 mls/hr 08/31/17 10:45 08/31/17 11: 19 D5-Lr - IV 75 mls/hr ASDIR ANIA Administration Non-Formulary Medication 6 tab.chew 09/01/17 10:00 Gummy Vitamins PO DAILY ANIA CBC, BMP 08/31/17 08:20 08/30/17 20:15 EKG: NSR with QTc 437 , ASSESSMENT/PLAN: The pt is a 42 year old female 34 weeks with a PMH of anemia, GERD who presented to the hospital complaining of two episodes of syncope. She is placed on observation in telemetry. # Syncope: * possibly due to dehydration, unlikely heart disease or seizure * orthostatic vitals, * bed rest * F/U ECHO, carotid doppler * recent Holter monitor with a back strip machine operator at [facility] reported as normal by patient * Cardiology consulted agree with current management will do echo on Saturday * cardiac monitoring no events * EKG No st,t wave changes * TSH 2.88 WNL # : * continue multivitamins * cont Iron 325 mg Po TID * f/u OBGYN recommendations # Elevated WBC , * wbc 16.7 * UA and urine cx #Sever Anemia Microcytic likely iron deficiency * MCV 79 * delutional due to and low oral intake * Unknown base line * H/H 7.7/24.7 * cont Iron oral * pt refused transfusion * iron studies ordered Iron 17, TIBC 606, Iron sat 3 , transferrin 468, Ferritin 4.4 * consult hem/onco for possible iron infusion # Colace for constipation 100 mg po TID # FEN * F: D5%/RL @ 125 cc/hr * E: WNL , monitor * N: regular diet #DVT PPX: * SCDs,early ambulation , US duplex to R/O DVT #GI PPX; * cont Nexium #Disposition: observation tele Visit type - Emergency Visit Emergency Visit: Yes ED Registration Date: 08/31/17 Care time: The patient presented to the Emergency Department on the above date and was hospitalized for further evaluation of their emergent condition. - New Patient This patient is new to me today: Yes Date on this admission: 09/01/17 - Critical Care Critical Care patient: No
[2017-09-01 08:06] LABS: TRANSFERRIN 468 mg/dL (200-370)
[2017-09-01] MEDS ORDERED: [UNRECOGNIZED DRUG - OTHER] PO SCH (10:00)
[2017-09-01] MEDS ORDERED: DEXTROSE 5%-LACTATED RINGERS 1,000 ML IV SCH (11:31)
[2017-09-01] MEDS ORDERED: FERROUS SO4 325 MG TABLET (FP) PO SCH (12:00)
--- NOTE | 2017-09-01 13:47 | PN ---
Progress Note, Physician History of Present Illness: seen and examined today in [facility]. no overnight events. no recurrent symptoms. wants to go home. was ordered for PRBC transfusion yesterday but refused, wishes to try iron supplements first. - Current Medication List Current Medications: Active Medications Docusate Sodium (Colace -) 100 mg PO TID [facility] Ferrous Sulfate (Feosol -) 325 mg PO TIDCM [facility] Dextrose/Lactated Ringer's (D5-Lr -) 1,000 mls @ 125 mls/hr IV ASDIR [facility] Last Admin: 09/01/17 12:27 Dose: 125 mls/hr Non-Formulary Medication (Gummy Vitamins) 6 tab.chew PO DAILY [facility] - Objective Vital Signs: Vital Signs Temperature 98 F 09/01/17 09:00 Pulse Rate 110 H 09/01/17 11:15 Respiratory Rate 18 09/01/17 09:00 Blood Pressure 107/68 09/01/17 11:15 O2 Sat by Pulse Oximetry (%) 98 09/01/17 09:00 Constitutional: Yes: No Distress, Calm Eyes: Yes: Conjunctiva Clear, EOM Intact HENT: Yes: Atraumatic, Normocephalic Neck: Yes: Supple, Trachea Midline Cardiovascular: Yes: Tachycardia, S1, S2. No: Bradycardia, Pulse Irregular, Bruit, JVD, Gallop, Murmur, Rub, S3, S4, Varicosities Respiratory: Yes: Regular, CTA Bilaterally. No: Rales, Rhonchi, Wheezes Gastrointestinal: Yes: Normal Bowel Sounds, Other (gravid uterus) Musculoskeletal: Yes: WNL Extremities: Yes: WNL Edema: No Peripheral Pulses WNL: Yes Peripheral Pulses: Left Doralis Pedis: 2+, Right Dorsalis Pedis: 2+ Neurological: Yes: Alert, Oriented Psychiatric: Yes: Alert, Oriented Labs: CBC, BMP 08/31/17 08:20 08/30/17 20:15 INR, PTT INR 1.02 (0.82-1.09) 08/30/17 20:15 - ....Imaging Chest X-ray: Report Reviewed, Image Reviewed EKG: Report Reviewed, Image Reviewed Other: Report Reviewed, Image Reviewed (tele-nsr, sinus tach, no arrhythmias) Assessment/Plan 32 year old woman with no significant pmh, currently at 34 weeks gestation of her 2nd , admitted with 2 episodes of syncope and episodes of palpitations. Syncope-uncertain etiology, possibly related to anemia with possible superimposed vasovagal or orthostatic hypotension -significant anemia, unknown baseline, iron deficiency, presume symptoms related to this -pt wishes to hold off on PRBCs transfusion and wants to try iron supplements first, we discussed that iron supplements take time to work -she does report palpitations on and off recently and correlating with the event -recent Holter monitor with a shift supervisor melting at [facility] reported as normal by patient -no events recorded on telemetry but note pt did not have symptoms since being here -check orthostatic BP -TSH wnl -maintain adequate hydration -if remains inpatient until saturday check echo at that time otherwise as outpatient
[2017-09-01] MEDS ORDERED: DOCUSATE SODIUM 100 MG CAPSULE (FP) PO SCH (14:00)
--- NOTE | 2017-09-01 17:52 | DS ---
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..Rectal Exam: Yes: Deferred Renal/: Yes: WNL Uterus: Yes: Normal (Gravid, NT) Breast(s): Yes: WNL Musculoskeletal: Yes: WNL Extremities: Yes: WNL Edema: Yes Edema: LLE: Trace, RLE: Trace Integumentary: Yes: WNL Neurological: Yes: WNL, Alert, Oriented ...Motor Strength: WNL Psychiatric: Yes: WNL, Alert, Oriented Labs: CBC, BMP 08/31/17 08:20 08/30/17 20:15 Discharge Summary Reason For Visit: SYNCOPE Current Active Problems Anemia (Acute) Carpal tunnel syndrome (Acute) (Acute) Syncope (Acute) Procedures: Principal: IV hydration, Telemetry monitoring Hospital Course: Refused blood transfusion No syncopal events No telemetry events Improved Condition: Improved - Instructions Diet, Activity, Other Instructions: Regular diet, off from work Referrals: Chad Hernandez MD [Staff Physician] - Disposition: HOME - Home Medications Comprehensive Discharge Medication List: Ambulatory Orders Demarcusmy Vitamins 6 tab.chew PO DAILY 08/30/17 Iron 10 ml PO BID 08/30/17
--- NOTE | 2017-09-01 18:00 | PN ---
Progress Note (SOAP) - Subjective Chief Complaint: Pt is w/o complaints. She feels better. No syncopal episodes History of Present Illness: Pt was awaiting Heme consult. She does not want to wait any longer. Pt states that she has a Heme consult scheduled for 09/03/2017 and cardiology consult for next week. She has an apt to see me tomorrow - Current Medications Current Medications: Active Medications Docusate Sodium (Colace -) 100 mg PO TID [facility] Last Admin: 09/01/17 13:51 Dose: 100 mg Ferrous Sulfate (Feosol -) 325 mg PO TIDCM [facility] Last Admin: 09/01/17 13:51 Dose: 325 mg Dextrose/Lactated Ringer's (D5-Lr -) 1,000 mls @ 125 mls/hr IV ASDIR [facility] Last Admin: 09/01/17 12:27 Dose: 125 mls/hr Non-Formulary Medication (Gummy Vitamins) 6 tab.chew PO DAILY [facility] - Objective Vital Signs: Vital Signs Temperature 97.5 F L 09/01/17 14:00 Pulse Rate 109 H 09/01/17 14:00 Respiratory Rate 18 09/01/17 09:00 Blood Pressure 110/73 09/01/17 14:00 O2 Sat by Pulse Oximetry (%) 98 09/01/17 09:00 Constitutional: Yes: Well Nourished, No Distress, Calm Eyes: Yes: WNL, Conjunctiva Clear, EOM Intact HENT: Yes: WNL, Atraumatic, Normocephalic Neck: Yes: WNL, Supple, Trachea Midline Cardiovascular: Yes: WNL, Regular Rate and Rhythm Respiratory: Yes: WNL, Regular, CTA Bilaterally Gastrointestinal: Yes: WNL, Normal Bowel Sounds, Soft, Other (Gravid) ...Rectal Exam: Yes: Deferred Genitourinary: Yes: WNL Musculoskeletal: Yes: WNL Extremities: Yes: WNL Peripheral Pulses WNL: Yes Edema: Yes Edema: LLE: Trace, RLE: Trace Integumentary: Yes: WNL Neurological: Yes: WNL, Alert, Oriented ...Motor Strength: Yes: WNL Psychiatric: Yes: WNL, Alert, Oriented Additional Findings/Remarks: NST is reactive, no decels, no ctx's Labs Lab Results: CBC, BMP 08/31/17 08:20 02/16/18 20:15 Problem List - Problems (1) Anemia Assessment/Plan: Pt refused a blood transfusion. She is a vegetarian for many years and we discussed dietary sources of iron and vitamins. I discussed the multiple risks of severe anemia in to mother and fetus, including risks of cardia and renal complications, neuro/brain events, anemia, increased risk of blood transfusion, infection, delayed healing, even . I explained that iron infusion will be planned but does not fix the anemia quickly. Code(s): D64.9 - ANEMIA, UNSPECIFIED Qualifiers: Anemia type: iron deficiency (2) Assessment/Plan: No acute issues. NST is reactive. No labor at this time. Labour precautions were discussed. kick counts advised. Code(s): Z34.90 - ENCNTR FOR SUPRVSN OF NORMAL , UNSP, UNSP TRIMESTER Qualifiers: Weeks of gestation: 34 weeks Qualified Code(s): Z3A.34 - 34 weeks gestation of (3) Syncope Assessment/Plan: Likely due to anemia and dehydration. No other causes found to date. I advised pt to avoid dehydration. I advised to avoid driving. I explained my concerns re : commute to work. Will be off from work for at least 1wk, until stable Code(s): R55 - SYNCOPE AND COLLAPSE Qualifiers: Syncope type: unspecified Qualified Code(s): R55 - Syncope and collapse
[2017-09-01 18:24] VITALS: BP 110/65; PULSE 101; TEMP 98.5
== END 2017-09-01 18:38 | disposition home or self-care (01) ==
LOC: JDEL 08-31 → JERBED 08-31 08:07 → J4W 08-31 15:09
PROVIDERS: ADMIT Obstetrics & Gynecology; ATTEND Obstetrics & Gynecology
DX: O60.00 Preterm labor without delivery, unspecified trimester (principal)
CPT/HCPCS: 36415; 59025; 80053; 82550; 82728; 83540; 83550; 84443; 84466; 84484; 85025; 85027; 85610; 85730; 86850; 86900; 86901; 93005; 93010; 93970-TC; G0378

== ENCOUNTER 2020-06-13 00:28 | Emergency (ER) | payer OTHER ==
[2020-06-13 00:53] VITALS: BMI 36.9
[2020-06-13] MEDS ORDERED: ACETAMINOPHEN 1000 MG/100 ML VIAL (NON FORMULARY) IVPB ONE (02:05)
[2020-06-13] MEDS ORDERED: ACETAMINOPHEN INJECTION 100 ML IVPB ONE (02:41)
[2020-06-13 07:03] VITALS: TEMP 97.3
[2020-06-13] MEDS ORDERED: METOCLOPRAMIDE HCL INJECTION 10 MG/2 ML VIAL IVPB ONE (11:17)
[2020-06-13] MEDS ORDERED: METOCLOPRAMIDE HCL INJECTION 10 MG/2 ML VIAL ONE (11:26)
[2020-06-13 13:17] VITALS: BP 102/62; PULSE 94
== END 2020-06-13 13:19 | disposition home or self-care (01) ==
LOC: JER 00:28
PROC: 3E0333Z Introduction of Anti-inflammatory into Peripheral Vein, Percutaneous Approach (ICD-10-PCS; principal; 2020-06-13)
PROC: 3E033GC Introduction of Other Therapeutic Substance into Peripheral Vein, Percutaneous Approach (ICD-10-PCS; 2020-06-13)
DX: R55 Syncope and collapse (principal)
CPT/HCPCS: 36415; 70551-TC; 84484; 93005; 93010; 99285-25; J0131